=== PATIENT | male | born 1975 | race American Indian/Alaskan Native ===

== ENCOUNTER 2017-06-18 20:51 | Inpatient (IN) | payer MEDICAID ==
[~2017-06-18] VITALS: Ht 190.5 cm; Wt 95.4 kg
[~2017-06-18 20:51] MED LIST: ALPR.5T; DOXY100C2 PO; HYDR-3720; HYDR1TAB86; HYDROCODONE; LISI10TA2; LOTENSIN; NFPRILOC40; PREVACID; SULF1TAB38; TRM50T PO; VERA240T; ultram
[2017-06-18] MEDS ORDERED: NS IV 1000 ML 1,000 ML IV ONE ×2 (21:43→22:56)
[2017-06-18] MEDS ORDERED: PIPERACILLIN SODIUM/TAZOBACTAM 4.5 GM in NS (IVPB) 100 ML IV ONE (21:45)
[2017-06-18] MEDS ORDERED: inSUlin (REGULAR) HUMAN 1 UNIT/0.01 ML (CHARGE PER UNIT) IV ONE (21:45)
[2017-06-18 21:49] LABS: BASOPHILS % (AUTO) 0 % (0-10); EOSINOPHILS % (AUTO) 0 % (0-10); LYMPHOCYTES % (AUTO) 16 % (12-44); MEAN CORPUSCULAR HEMOGLOBIN 29 PG (25-34); MEAN CORPUSCULAR HGB CONC 34 G/DL (32-36); MEAN CORPUSCULAR VOLUME 86 FL (80-99); MEAN PLATELET VOLUME 13.4 FL (7.4-10.4); MONOCYTES # (AUTO) 0.8 X 10^3 (0.0-1.0); MONOCYTES % (AUTO) 13 % (0-12); NEUTROPHILS # (AUTO) 4.4 X 10^3 (1.8-7.8); NEUTROPHILS % (AUTO) 70 % (42-75); PLATELET COUNT 123 10^3/uL (130-400); RED BLOOD COUNT 4.99 10^6/uL (4.35-5.85); RED CELL DISTRIBUTION WIDTH 12.4 % (10.0-14.5); WHITE BLOOD COUNT 6.3 10^3/uL (4.3-11.0)
[2017-06-18 21:54] LABS: BILIRUBIN,URINE NEGATIVE (NEGATIVE); KETONES,URINE 1+ (NEGATIVE); LEUKOCYTE ESTERASE ,URINE NEGATIVE (NEGATIVE); NITRITE,URINE NEGATIVE (NEGATIVE); PH,URINE 5 (5-9); PROTEIN,URINE NEGATIVE (NEGATIVE); UROBILINOGEN,URINE NORMAL (NORMAL)
[2017-06-18 21:54] LABS: PROTHROMBIN TIME PATIENT 13.1 SEC (12.2-14.7)
[2017-06-18 22:10] LABS: WBC,URINE RARE /HPF
[2017-06-18 22:10] LABS: ALANINE AMINOTRANSFERASE 27 U/L (0-55); ALBUMIN 3.6 GM/DL (3.2-4.5); ANION GAP 15 MMOL/L (5-14); ASPARTATE AMINO TRANSFERASE 18 U/L (5-34); BILIRUBIN,TOTAL 0.6 MG/DL (0.1-1.0); BLOOD UREA NITROGEN 12 MG/DL (7-18); BUN/CREATININE RATIO 11; CALCIUM 9.2 MG/DL (8.5-10.1); CARBON DIOXIDE 22 MMOL/L (21-32); CHLORIDE 91 MMOL/L (98-107); CREATININE SERUM 1.07 MG/DL (0.60-1.30); GFR ESTIMATED > 60; SODIUM 128 MMOL/L (135-145); TOTAL PROTEIN 6.4 GM/DL (6.4-8.2)
[2017-06-18 22:12] LABS: GLUCOSE 569 MG/DL (70-105)
[2017-06-18] MEDS ORDERED: ACETAMINOPHEN 500 MG TAB (TYLENOL) PO ONE (23:15)
--- NOTE | 2017-06-18 23:20 | ED General ---
General Chief Complaint: Oral/Throat Problems Stated Complaint: INFECTION ON LIP Nursing Triage Note: patient reports a dental abscess on the L lower jaw. patient reports that this has been there for 2 days. patient also reports that his blood sugar is high and his meter at home read 'error' patient reports he is supposed to take insulin for blood sugar but hasn't 'taken it in years' Nursing Sepsis Screen: No Definite Risk Source of Information: Patient, Old Records Exam Limitations: No Limitations History of Present Illness Time Seen by Provider: 21:37 Initial Comments This 42-year-old man presents to the emergency room complaining of mouth infection, fever, hyperglycemia, and feeling dehydrated. He has type II diabetes for which he takes no medications. He has not seen a physician in more than 2 years. He is noted to have a temperature of 101.1 on assessment. He reports temperature up to 101.6 at home. He has had some mild cough as well as nausea and vomiting. He has urinary frequency and some suprapubic tenderness. He has been ill for the last 2-3 days. Sepsis was suspected on patient's examination at 21:40. Patient admits to occasional alcohol use and marijuana use. Allergies and Home Medications Allergies Coded Allergies: No Known Drug Allergies (Unverified Allergy, Mild, 06/08/09) Constitutional: see HPI EENTM: see HPI Respiratory: see HPI Cardiovascular: other (tachycardia) Gastrointestinal: see HPI Genitourinary: see HPI Musculoskeletal: no symptoms reported Skin: no symptoms reported Psychiatric/Neurological: No Symptoms Reported Hematologic/Lymphatic: No Symptoms Reported Past Gkttinb-Yppmma-Wmbqrz Hx Patient Social History Alcohol Use: Occasionally Uses Recreational Drug Use: Yes (past history of IV drug use) Drug of Choice: THC Smoking Status: Current Everyday Smoker Type Used: Cigarettes Recent Foreign Travel: No Contact w/Someone Who Travel: No Recent Infectious Disease Expo: No Recent Hopitalizations: No Surgeries HX Surgeries: Yes Surgeries: Abdominal Respiratory Hx Respiratory Disorders: Yes Respiratory Disorders: COPD Cardiovascular Hx Cardiac Disorders: Yes Cardiac Disorders: Hypertension Neurological Hx Neurological Disorders: No Reproductive System Hx Reproductive Disorders: No Genitourinary Hx Genitourinary Disorders: No Gastrointestinal Hx Gastrointestinal Disorders: Yes Gastrointestinal Disorders: Gastroesophageal Reflux Musculoskeletal Hx Musculoskeletal Disorders: No Endocrine Hx Endocrine Disorders: Yes Endocrine Disorders: Diabetes, Insulin dep HEENT HX ENT Disorders: Yes Cancer Hx Cancer: No Psychosocial Hx Psychiatric Problems: Yes (history of IV drug use) Blood Transfusions Hx Blood Disorders: No Physical Exam Vital Signs Vital Sign - Last 12Hours 06/18/17 21:04 Temp 101.1 Pulse 118 Resp 18 B/P (MAP) 127/75 Pulse Ox 96 Capillary Refill : Less Than 3 Seconds General Appearance: WD/WN, Other (ill appearing) HEENT: PERRL/EOMI, Normal ENT Inspection, Other (severe dental disease. Diffuse severe thrush) Neck: Normal Inspection Respiratory: No Accessory Muscle Use, No Respiratory Distress, Crackles (left lung base and throughout the right lung) Cardiovascular: No Edema, No Murmur, Normal Peripheral Pulses, Tachycardia Gastrointestinal: Normal Bowel Sounds, Soft, Tenderness (mild in the suprapubic region) Extremity: Normal Inspection, No Pedal Edema Neurologic/Psychiatric: Alert, Oriented x3, No Motor/Sensory Deficits, Normal Mood/Affect, company doctor II-XII Norm as Tested Skin: Normal Color, Warm/Dry Focused Exam Evaluation Sepsis Stage: Sepsis Possible Source: Pulmonary Time of Focused Exam: 23:30 Respiratory: Lungs Clear, Normal Breath Sounds, No Accessory Muscle Use, No Respiratory Distress Cardiovascular: No Edema, No Murmur, Tachycardia Capillary Refill: Less Than 3 Seconds Peripheral Pulses: 3+ Radial Pulses (R), 3+ Radial Pulses (L) Skin: normal color, warm/dry Lactic Acid Level Laboratory Tests Test 06/18/17 21:15 Lactic Acid Level 1.60 MMOL/L (0.50-2.00) Progress/Results/Core Measures Results/Orders Lab Results Laboratory Tests Test 06/18/17 21:08 06/18/17 21:15 06/18/17 21:45 06/18/17 22:30 Range/Units Glucometer 504 *H 70-110 MG/DL White Blood Count 6.3 4.3-11.0 10^3/uL Red Blood Count 4.99 4.35-5.85 10^6/uL Hemoglobin 14.6 13.3-17.7 G/DL Hematocrit 43 40-54 % Mean Corpuscular Volume 86 80-99 FL Mean Corpuscular Hemoglobin 29 25-34 PG Mean Corpuscular Hemoglobin Concent 34 32-36 G/DL Red Cell Distribution Width 12.4 10.0-14.5 % Platelet Count 123 L 130-400 10^3/uL Mean Platelet Volume 13.4 H 7.4-10.4 FL Neutrophils (%) (Auto) 70 42-75 % Lymphocytes (%) (Auto) 16 12-44 % Monocytes (%) (Auto) 13 H 0-12 % Eosinophils (%) (Auto) 0 0-10 % Basophils (%) (Auto) 0 0-10 % Neutrophils # (Auto) 4.4 1.8-7.8 X 10^3 Lymphocytes # (Auto) 1.0 1.0-4.0 X 10^3 Monocytes # (Auto) 0.8 0.0-1.0 X 10^3 Eosinophils # (Auto) 0.0 0.0-0.3 10^3/uL Basophils # (Auto) 0.0 0.0-0.1 10^3/uL Prothrombin Time 13.1 12.2-14.7 SEC INR Comment 1.0 0.8-1.4 Activated Partial Thromboplast Time 28 24-35 SEC Sodium Level 128 L 135-145 MMOL/L Potassium Level 4.0 3.6-5.0 MMOL/L Chloride Level 91 L 98-107 MMOL/L Carbon Dioxide Level 22 21-32 MMOL/L Anion Gap 15 H 5-14 MMOL/L Blood Urea Nitrogen 12 7-18 MG/DL Creatinine 1.07 0.60-1.30 MG/DL Estimat Glomerular Filtration Rate > 60 BUN/Creatinine Ratio 11 Glucose Level 569 *H 70-105 MG/DL Lactic Acid Level 1.60 0.50-2.00 MMOL/L Calcium Level 9.2 8.5-10.1 MG/DL Total Bilirubin 0.6 0.1-1.0 MG/DL Aspartate Amino Transf (AST/SGOT) 18 5-34 U/L Alanine Aminotransferase (ALT/SGPT) 27 0-55 U/L Alkaline Phosphatase 97 40-136 U/L Total Protein 6.4 6.4-8.2 GM/DL Albumin 3.6 3.2-4.5 GM/DL Urine Color YELLOW Urine Clarity CLEAR Urine pH 5 5-9 Urine Specific [place] 1.010 L 1.016-1.022 Urine Protein NEGATIVE NEGATIVE Urine Glucose (UA) 4+ H NEGATIVE Urine Ketones 1+ H NEGATIVE Urine Nitrite NEGATIVE NEGATIVE Urine Bilirubin NEGATIVE NEGATIVE Urine Urobilinogen NORMAL NORMAL MG/DL Urine Leukocyte Esterase NEGATIVE NEGATIVE Urine RBC (Auto) NEGATIVE NEGATIVE Urine RBC RARE /HPF Urine WBC RARE /HPF Urine Crystals NONE /LPF Urine Bacteria NEGATIVE /HPF Urine Casts NONE /LPF Urine Mucus NEGATIVE /LPF Urine Culture Indicated NO Urine Opiates Screen NEGATIVE NEGATIVE Urine Oxycodone Screen NEGATIVE NEGATIVE Urine Methadone Screen NEGATIVE NEGATIVE Urine Propoxyphene Screen NEGATIVE NEGATIVE Urine Barbiturates Screen NEGATIVE NEGATIVE Ur Tricyclic Antidepressants Screen NEGATIVE NEGATIVE Urine Phencyclidine Screen NEGATIVE NEGATIVE Urine Amphetamines Screen POSITIVE H NEGATIVE Urine Methamphetamines Screen POSITIVE H NEGATIVE Urine Benzodiazepines Screen NEGATIVE NEGATIVE Urine Cocaine Screen NEGATIVE NEGATIVE Urine Cannabinoids Screen NEGATIVE NEGATIVE Test 06/18/17 22:34 Range/Units Glucometer 440 *H 70-110 MG/DL My Orders Orders - JOVANNY IBRAHIM MD Chest Pa/Lat (2 View) (06/18/17 21:42) Cbc With Automated Diff (06/18/17 21:42) Comprehensive Metabolic Panel (06/18/17 21:42) Lactic Acid Analyzer (06/18/17 21:42) Blood Culture (06/18/17 21:42) Sputum Culture (06/18/17 21:42) Ua Culture If Indicated (06/18/17 21:42) Protime With Inr (06/18/17 21:42) Partial Thromboplastin Time (06/18/17 21:42) O2 (06/18/17 21:42) Saline Lock/Iv-Start (06/18/17 21:42) Saline Lock/Iv-Start (06/18/17 21:42) Vital Signs Adult Sepsis Patie Q1HR (06/18/17 21:42) Remove Rings In Anticipation O (06/18/17 21:42) Insulin (Regular) Human (Humulin R (Per (06/18/17 21:45) Drug Screen Stat (Urine) (06/18/17 21:43) Ns Iv 1000 Ml (Sodium Chloride 0.9%) (06/18/17 21:43) Piperacillin Sodium/Tazobactam (Zosyn Vi (06/18/17 21:45) Hiv 1&2 Antibody (06/18/17 22:07) Accucheck Stat ONCE (06/18/17 22:08) Accucheck Stat ONCE (06/18/17 22:08) Ns Iv 1000 Ml (Sodium Chloride 0.9%) (06/18/17 22:56) Acetaminophen Tablet (Tylenol Tablet) (06/18/17 23:15) Medications Given in ED Current Medications Medications Dose Ordered Sig/Gabrielle Route Start Time Stop Time Status Last Admin Dose Admin Insulin Human Regular 5 unit ONCE ONCE IV 06/18/17 21:45 06/18/17 21:46 DC 06/18/17 21:53 5 UNIT Piperacillin Sod/ Tazobactam Sod 4.5 gm/Sodium Chloride 100 ml @ 200 mls/hr ONCE ONCE IV 06/18/17 21:45 06/18/17 22:14 DC 06/18/17 22:34 200 MLS/HR Sodium Chloride 1,000 ml @ 0 mls/hr Q0M ONCE IV 06/18/17 21:43 06/18/17 21:45 DC 06/18/17 21:53 0 MLS/HR Sodium Chloride 1,000 ml @ 0 mls/hr Q0M ONCE IV 06/18/17 22:56 06/18/17 22:57 DC 06/18/17 23:05 0 MLS/HR Vital Signs/I&O Vital Sign - Last 12Hours 06/18/17 21:04 Temp 101.1 Pulse 118 Resp 18 B/P (MAP) 127/75 Pulse Ox 96 Blood Pressure Mean: 92 Point of Care Testing Finger Stick Blood Glucose: 440 Blood Glucose Action Taken: RN AND DR NOTIFIED Progress Note : Progress Note As soon as sepsis was suspected, the septic protocol was followed. Zosyn was ordered for initial therapy. Patient received a total of 2 L of IV fluids during his ER stay and 5 units of insulin. Blood sugar was trending down at the time of admission. Case was reviewed with Dr. Kang who agrees with admission to the ICU on an insulin drip with pneumonia protocol as well. Diagnostic Imaging Diagonstic Imaging: Xray Plain Films/CT/US/NM/MRI: chest Comments Two-view chest x-ray viewed by me. Report not yet available. There are subtle infiltrates in the right perihilar region and left lower lung suspicious of pneumonia. This correlates well with bilateral crackles on exam. Departure Communication Time/Spoke to Admitting Phy: 22:[address] Kang Impression Impression: Primary Impression: Sepsis Qualified Codes: A41.9 - Sepsis, unspecified organism Additional Impressions: Pneumonia Qualified Codes: J18.9 - Pneumonia, unspecified organism Hyperglycemia Diabetes type 2, uncontrolled Qualified Codes: E11.8 - Type 2 diabetes mellitus with unspecified complications; E11.65 - Type 2 diabetes mellitus with hyperglycemia Thrush Methamphetamine use Hypovolemia Disposition: ADMITTED INPATIENT Condition: Improved Decision to Admit Reason: Admit from ER (General) Decision to Admit/Date: Jun 18, 2017 Time/Decision to Admit Time: 21:40 Departure-Patient Inst. Referrals: NO,LOCAL PHYSICIAN (PCP/Family) Primary Care Physician JOVANNY IBRAHIM MD Jun 18, 2017 23:20
[2017-06-19] VITALS (27 sets, daily range): BP systolic 100–141; BP diastolic 52–93
[2017-06-19] MEDS ORDERED: inSUlin (REGULAR) HUMAN 1 UNIT/0.01 ML (CHARGE PER UNIT) IV PRN (00:30)
[2017-06-19] MEDS ORDERED: CATHETER FLUSH 10 ML SYR IV PRN (00:30)
[2017-06-19] MEDS ORDERED: FLUCONAZOLE 200 MG/NACL 100 ML (PRE-MIX) IV ONE (00:30)
[2017-06-19] MEDS ORDERED: ONDANSETRON 4 MG/2 ML (SDV) Z0FRAN IV PRN (00:30)
[2017-06-19] MEDS ORDERED: INSULIN DRIP 250 UNITS/NS 250 ML IV SCH ×2 (00:30)
[2017-06-19] MEDS ORDERED: DEXTROSE 50% 50 ML (IMS) SYR IV PRN (00:30)
[2017-06-19] MEDS: NS IV 1000 ML 1,000 ML IV SCH ×6 (00:49→15:55)
[2017-06-19] MEDS ORDERED: NORMAL SALINE 250 ML ONE (00:51)
[2017-06-19] MEDS: LEVOFLOXACIN 750 MG/D5W 150 ML PRE-MIX IV SCH (01:44)
[2017-06-19] MEDS: CEFEPIME 2 GM/NS 50 ML IVPB IV SCH ×4 (02:44→14:06)
[2017-06-19] MEDS ORDERED: RT-ALBUTEROL/IPRATROPIUM 3 ML (DUONEB) VIAL INH PRN (03:45)
[2017-06-19 03:54] LABS: BASOPHILS % (AUTO) 0 % (0-10); EOSINOPHILS % (AUTO) 0 % (0-10); LYMPHOCYTES # (AUTO) 1.1 X 10^3 (1.0-4.0); LYMPHOCYTES % (AUTO) 23 % (12-44); MEAN CORPUSCULAR HEMOGLOBIN 30 PG (25-34); MEAN CORPUSCULAR HGB CONC 34 G/DL (32-36); MEAN CORPUSCULAR VOLUME 87 FL (80-99); MEAN PLATELET VOLUME 12.9 FL (7.4-10.4); MONOCYTES # (AUTO) 0.6 X 10^3 (0.0-1.0); MONOCYTES % (AUTO) 12 % (0-12); NEUTROPHILS # (AUTO) 3.1 X 10^3 (1.8-7.8); NEUTROPHILS % (AUTO) 64 % (42-75); PLATELET COUNT 108 10^3/uL (130-400); RED BLOOD COUNT 4.27 10^6/uL (4.35-5.85); RED CELL DISTRIBUTION WIDTH 12.2 % (10.0-14.5); WHITE BLOOD COUNT 4.8 10^3/uL (4.3-11.0)
[2017-06-19 04:15] LABS: ALANINE AMINOTRANSFERASE 22 U/L (0-55); ANION GAP 10 MMOL/L (5-14); ASPARTATE AMINO TRANSFERASE 21 U/L (5-34); BILIRUBIN,TOTAL 0.4 MG/DL (0.1-1.0); BLOOD UREA NITROGEN 12 MG/DL (7-18); BUN/CREATININE RATIO 16; CALCIUM 7.9 MG/DL (8.5-10.1); CARBON DIOXIDE 22 MMOL/L (21-32); CHLORIDE 101 MMOL/L (98-107); CREATININE SERUM 0.73 MG/DL (0.60-1.30); GFR ESTIMATED > 60; GLUCOSE 265 MG/DL (70-105); MAGNESIUM 1.6 MG/DL (1.8-2.4); PHOSPHORUS 2.6 MG/DL (2.3-4.7); POTASSIUM 3.1 MMOL/L (3.6-5.0); SODIUM 133 MMOL/L (135-145)
[2017-06-19] MEDS: CATHETER FLUSH 10 ML SYR IV SCH ×3 (04:32→21:35)
[2017-06-19] MEDS: MAGNESIUM 1 GM/100 ML IVPB 100 ML IV SCH ×2 (04:39→05:29)
[2017-06-19] MEDS: POTASSIUM CL 10MEQ/50ML IVPB 50 ML IV SCH ×4 (04:39→07:26)
[2017-06-19] MEDS ORDERED: KCL 20 MEQ TAB (K-DUR) PO SCH (06:00)
[2017-06-19] MEDS ORDERED: POTASSIUM CL 10MEQ/50ML IVPB 50 ML IV SCH (06:00)
[2017-06-19] MEDS ORDERED: MAGNESIUM 1 GM/100 ML IVPB 100 ML IV SCH (06:00)
[2017-06-19] MEDS: RT-ALBUTEROL/IPRATROPIUM 3 ML (DUONEB) VIAL INH SCH ×2 (07:36→19:09)
--- NOTE | 2017-06-19 08:00 | Diagnostic Imaging Report ---
INDICATION: Fever. COMPARISON: 01/12/2010. Frontal and lateral views of the chest demonstrate clear lungs bilaterally. Heart is normal. No pneumothorax. Osseous structures normal. IMPRESSION: Negative chest. Dictated by: Dictated on workstation # [id number]
[2017-06-19] MEDS: ACETAMINOPHEN 500 MG TAB (TYLENOL) PO PRN ×2 (09:18→15:59)
[2017-06-19] MEDS: fluCOnazole (DIFLUCAN) 100 MG TAB PO SCH (09:18)
--- NOTE | 2017-06-19 09:49 | Diagnostic Imaging Report ---
INDICATION: Cough. COMPARISON: 06/18/2017. FINDINGS: Progression of left lower lobe heterogeneous consolidations. No pneumothorax. No pleural effusion. Normal cardiomediastinal silhouette. IMPRESSION: 1. Progression of left lower lobe heterogeneous consolidations which is likely due to pneumonia per patient history. Dictated by: Dictated on workstation # [id number]
--- NOTE | 2017-06-19 11:07 | History & Physical-Hospitalist ---
HPI History of Present Illness: HPI/Chief Complaint CC: Cough and fever HPI: This is a 42yoWM known DM but non-compliant with medical treatment who also uses meth that presents to the ER w/cough and fever. He was dx with pneumonia, sepsis and sugar of 500 so he was placed in ICU overnight and received IVF, insulin drip and antibiotics. Pt has a very poor prognosis considering meth use and his obvious lack of interest in listening to the medical plan. He also has thrush and can't eat so we have placed him on Diflucan and I started Nystatin and HIV test is pending. Source: patient Exam Limitations: other (refuses to be forthcoming with any details most of interview) Date Seen 06/19/17 Time Seen by Provider: 10:30 Attending Physician Lillie Kang DO PCP No,Local Physician Referring Physician Date of Admission Jun 18, 2017 at 23:12 Home Medications & Allergies Home Medications Reviewed patient Home Medication Reconciliation Form Allergies Allergies Coded Allergies No Known Drug Allergies (Unverified06/08/09) Past Klxlfrn-Eylyvz-Oibopg Hx Patient Social History Marrital Status: cohabiting Employed/Student: unemployed Alcohol Use: Occasionally Uses Recreational Drug Use: Yes (past history of IV drug use) Drug of Choice: THC Smoking Status: Current Everyday Smoker Type Used: Cigarettes Physical Abuse Screen: No Sexual Abuse: No Recent Foreign Travel: No Contact w/other who traveled: No Recent Hopitalizations: No Recent Infectious Disease Expo: No Seasonal Allergies Seasonal Allergies: No Surgeries HX Surgeries: Yes Surgeries: Abdominal Respiratory Hx Respiratory Disorders: Yes Respiratory Disorders: Asthma Cardiovascular Hx Cardiovascular Disorders: Yes Cardiac Disorders: Hypertension Neurological Hx Neurological Disorders: No Reproductive System Hx Reproductive Disorders: No Genitourinary Hx Genitourinary Disorders: No Gastrointestinal Hx Gastrointestinal Disorders: Yes Gastrointestinal Disorders: Gastroesophageal Reflux Musculoskeletal Hx Musculoskeletal Disorders: No Endocrine Hx Endocrine Disorders: Yes Endocrine Disorders: Diabetes, Insulin dep HEENT HX ENT Disorders: Yes Cancer Hx Cancer: No Psychosocial Hx Psychiatric Problems: Yes (history of IV drug use) Blood Transfusions Hx Blood Disorders: No Family Medical History Family Hx: Patient reports no known family medical history. Review of Systems Constitutional: chills, dizziness, fever, malaise, weakness EENTM: no symptoms reported Respiratory: dyspnea on exertion, short of breath, wheezing Cardiovascular: no symptoms reported Gastrointestinal: no symptoms reported Genitourinary: no symptoms reported Musculoskeletal: no symptoms reported Skin: no symptoms reported Psychiatric/Neurological: No Symptoms Reported All Other Systems Reviewed Negative Unless Noted: Yes Physical Exam Physical Exam Vital Signs Vital Sign - Last 12Hours 06/18/17 06/19/17 06/19/17 21:04 00:05 03:15 Temp 101.1 Pulse 118 Resp 18 B/P (MAP) 127/75 Pulse Ox 96 O2 Delivery Room Air FiO2 21 Capillary Refill : Less Than 3 Seconds General Appearance: No Apparent Distress, WD/WN, Chronically ill, Obese Eyes: Bilateral Eye Normal Inspection, Bilateral Eye PERRL HEENT: PERRL/EOMI, Normal ENT Inspection, Pharynx Normal, Other (thrush on tongue) Neck: Full Range of Motion, Normal Inspection, Non Tender, Supple, Carotid Bruit Respiratory: Chest Non Tender, Lungs Clear, Normal Breath Sounds, No Accessory Muscle Use, No Respiratory Distress Cardiovascular: Regular Rate, Rhythm, No Edema, No Gallop, No JVD, No Murmur, Normal Peripheral Pulses Gastrointestinal: Normal Bowel Sounds, No Organomegaly, No Pulsatile Mass, Non Tender, Soft Back: Normal Inspection, No CVA Tenderness, No Vertebral Tenderness Extremity: Normal Capillary Refill, Normal Inspection, Normal Range of Motion, Non Tender, No Calf Tenderness, No Pedal Edema Neurologic/Psychiatric: Alert, Oriented x3, No Motor/Sensory Deficits, Normal Mood/Affect Skin: Normal Color, Warm/Dry Lymphatic: No Adenopathy Results Results/Procedures Lab Laboratory Tests 06/18/17 21:15 06/19/17 03:10 Assessment/Plan Admission Diagnosis Assessment: Sepsis due to pneumonia LLL Meth use Thrush so HIV results pending Poor dental hygiene DM OOC due to non-compliance with medical treatment HGA1C 14 Assessment and Plan Plan: Transfer to floor OHA SSI Novolog DM education Nystatin S&S with Diflucan Abx Decrease IVF Clinical Quality Measures DVT/VTE Risk/Contraindication: Risk Factor Score Per Nursin RFS Level Per Nursing on Admit: 1=Low/No VTE PPX LILLIE KANG DO Jun 19, 2017 11:07
[2017-06-19] MEDS: NYSTATIN ORAL SUSP 5 ML UDC PO SCH ×2 (14:06→17:11)
[2017-06-19] MEDS: ENOXAPARIN 40 MG/0.4 ML (LOVENOX) SYR SC SCH (14:07)
[2017-06-19] MEDS: inSUlin ASPART (NovoLOG) 1 UNIT/0.01 ML (CHARGE PER UNIT) SC SCH ×2 (17:11→21:36)
[2017-06-19] MEDS ORDERED: morphine INJ 4 MG/ML 1 ML (VIAL/SYRINGE) IVP PRN (21:00)
[2017-06-19] MEDS ORDERED: IBUPROFEN TABLET 200 MG TAB PO PRN (21:00)
[2017-06-19] MEDS: glyBURIDE 2.5 MG (MICRONASE) TAB PO SCH (21:31)
[2017-06-20] MEDS: LEVOFLOXACIN 750 MG/D5W 150 ML PRE-MIX IV SCH (00:38)
[2017-06-20] MEDS: NYSTATIN ORAL SUSP 5 ML UDC PO SCH ×3 (00:38→12:24)
[2017-06-20] MEDS: CEFEPIME 2 GM/NS 50 ML IVPB IV SCH ×4 (00:38→12:36)
[2017-06-20 03:15] VITALS: BP 133/81
[2017-06-20] MEDS: NS IV 1000 ML 1,000 ML IV SCH (04:27)
[2017-06-20 04:52] LABS: BASOPHILS % (AUTO) 1 % (0-10); EOSINOPHILS % (AUTO) 1 % (0-10); LYMPHOCYTES # (AUTO) 0.8 X 10^3 (1.0-4.0); LYMPHOCYTES % (AUTO) 21 % (12-44); MEAN CORPUSCULAR HEMOGLOBIN 30 PG (25-34); MEAN CORPUSCULAR HGB CONC 34 G/DL (32-36); MEAN CORPUSCULAR VOLUME 88 FL (80-99); MEAN PLATELET VOLUME 12.6 FL (7.4-10.4); MONOCYTES # (AUTO) 0.4 X 10^3 (0.0-1.0); MONOCYTES % (AUTO) 11 % (0-12); NEUTROPHILS # (AUTO) 2.6 X 10^3 (1.8-7.8); NEUTROPHILS % (AUTO) 67 % (42-75); PLATELET COUNT 105 10^3/uL (130-400); RED BLOOD COUNT 4.17 10^6/uL (4.35-5.85); RED CELL DISTRIBUTION WIDTH 12.1 % (10.0-14.5); WHITE BLOOD COUNT 3.9 10^3/uL (4.3-11.0)
[2017-06-20 05:23] LABS: ALANINE AMINOTRANSFERASE 26 U/L (0-55); ALBUMIN 2.8 GM/DL (3.2-4.5); ANION GAP 9 MMOL/L (5-14); ASPARTATE AMINO TRANSFERASE 24 U/L (5-34); BILIRUBIN,TOTAL 0.3 MG/DL (0.1-1.0); BLOOD UREA NITROGEN 9 MG/DL (7-18); BUN/CREATININE RATIO 12; CALCIUM 7.9 MG/DL (8.5-10.1); CARBON DIOXIDE 21 MMOL/L (21-32); CHLORIDE 101 MMOL/L (98-107); CREATININE SERUM 0.76 MG/DL (0.60-1.30); GFR ESTIMATED > 60; GLUCOSE 329 MG/DL (70-105); POTASSIUM 3.8 MMOL/L (3.6-5.0); SODIUM 131 MMOL/L (135-145); TOTAL PROTEIN 5.3 GM/DL (6.4-8.2)
[2017-06-20] MEDS: CATHETER FLUSH 10 ML SYR IV SCH (06:02)
[2017-06-20] MEDS: inSUlin ASPART (NovoLOG) 1 UNIT/0.01 ML (CHARGE PER UNIT) SC SCH ×2 (06:02→11:14)
[2017-06-20 07:47] VITALS: BP 114/63
--- NOTE | 2017-06-20 08:46 | Pulmonary Consultation ---
History of Present Illness History of Present Illness Date of Consultation 06/20/17 08:41 Time Seen by Provider: 08:41 Date of Admission History of Present Illness 42YO WITH HX of noncompliant DM and uses methamphetamines presented to ED secondary to coughing and fever. He was dx with pneumonia and admitted to ICU x 1 night then transferred to 4th floor. Pt also has severe thrush he is currently on Diflucan and HIV testing is pending. I am consulted for pulmonary management. Allergies and Home Medications Allergies Coded Allergies: No Known Drug Allergies (Unverified , 06/08/09) Home Medications No Active Prescriptions or Reported Meds Past Epxthfq-Xuapkx-Kgdhab Hx Patient Social History Alcohol Use: Occasionally Uses Recreational Drug Use: Yes (past history of IV drug use) Drug of Choice: THC Smoking Status: Current Everyday Smoker Type Used: Cigarettes Recent Foreign Travel: No Contact w/Someone Who Travel: No Recent Infectious Disease Expo: No Recent Hopitalizations: No Physical Abuse Screen: No Sexual Abuse: No Seasonal Allergies Seasonal Allergies: No Surgeries HX Surgeries: Yes Surgeries: Abdominal Respiratory Hx Respiratory Disorders: Yes Respiratory Disorders: COPD Cardiovascular Hx Cardiac Disorders: Yes Cardiac Disorders: Hypertension Neurological Hx Neurological Disorders: No Reproductive System Hx Reproductive Disorders: No Genitourinary Hx Genitourinary Disorders: No Gastrointestinal Hx Gastrointestinal Disorders: Yes Gastrointestinal Disorders: Gastroesophageal Reflux Musculoskeletal Hx Musculoskeletal Disorders: No Endocrine Hx Endocrine Disorders: Yes Endocrine Disorders: Diabetes, Insulin dep HEENT HX ENT Disorders: Yes Cancer Hx Cancer: No Psychosocial Hx Psychiatric Problems: Yes (history of IV drug use) Blood Transfusions Hx Blood Disorders: No Family Medical History Family Medial History: Patient reports no known family medical history. Review of Systems Time Seen by Provider: 08:53 Constitutional: Fever Exam Exam Vital Signs Date Time Temp Pulse Resp B/P (MAP) Pulse Ox O2 Delivery O2 Flow Rate FiO2 06/20/17 07:47 98.0 87 20 114/63 99 Room Air 06/20/17 03:15 98.8 99 18 133/81 98 Room Air 06/19/17 23:25 99.3 100 20 125/76 96 Room Air 06/19/17 21:00 Room Air 06/19/17 19:47 98.9 85 18 141/93 100 Room Air 06/19/17 19:09 95 Room Air 06/19/17 17:11 100.1 06/19/17 16:59 100.1 100 18 138/89 97 Room Air 06/19/17 15:59 101.9 06/19/17 13:00 90 18 132/85 98 Room Air 06/19/17 12:40 Room Air 06/19/17 12:00 102 17 100/52 97 Room Air 06/19/17 11:00 88 16 124/81 100 Room Air 06/19/17 10:00 98 19 130/83 98 Room Air 06/19/17 09:18 101.3 06/19/17 09:00 109 10 121/82 98 Room Air I & O 06/20/17 07:00 Intake Total 3880 ml Output Total 2025 ml Balance 1855 ml General Appearance: No Apparent Distress, WD/WN, Chronically ill, Obese HEENT: PERRL/EOMI, Normal ENT Inspection, Pharynx Normal, Other (thrush on tongue) Neck: Full Range of Motion, Normal Inspection, Non Tender, Supple, Carotid Bruit Respiratory: Chest Non Tender, Lungs Clear, Normal Breath Sounds, No Accessory Muscle Use, No Respiratory Distress Cardiovascular: Regular Rate, Rhythm, No Edema, No Gallop, No JVD, No Murmur, Normal Peripheral Pulses Capillary Refill: Less Than 3 Seconds Peripheral Pulses: 3+ Radial Pulses (R), 3+ Radial Pulses (L) Extremity: Normal Capillary Refill, Normal Inspection, Normal Range of Motion, Non Tender, No Calf Tenderness, No Pedal Edema Neurologic/Psychiatric: Alert, Oriented x3, No Motor/Sensory Deficits, Normal Mood/Affect Skin: Normal Color, Warm/Dry Lymphatic: No Adenopathy Results Lab Laboratory Tests 06/18/17 21:15 06/19/17 03:10 06/20/17 04:15 Assessment/Plan Assessment/Plan Sepsis secondary to pneumonia LLL -Continue abx therapy with Levaquin PO x 7 days then D/C -await calero cultures Methamphetamine use Thrush -HIV pending From pulmonary standpoint pt is ok for discharge on Levaquin. F/U with his PCP for f/u CXR. Clinical Quality Measures DVT/VTE Risk/Contraindication: Risk Factor Score Per Nursin RFS Level Per Nursing on Admit: 1=Low/No VTE PPX MIGUELINA MACDONALD DO Jun 20, 2017 08:46
[2017-06-20] MEDS: glyBURIDE 2.5 MG (MICRONASE) TAB PO SCH (09:27)
[2017-06-20] MEDS: fluCOnazole (DIFLUCAN) 100 MG TAB PO SCH (09:27)
[2017-06-20] MEDS: RT-ALBUTEROL/IPRATROPIUM 3 ML (DUONEB) VIAL INH SCH (09:43)
--- NOTE | 2017-06-20 11:07 | Progress Note-Hospitalist ---
Standard Progress Note Progress Notes/Assess & Plan Date Seen 06/20/17 Time Seen by Provider: 11:00 Diagnosis Assessment: Sepsis due to pneumonia LLL Meth use Thrush so HIV results pending Poor dental hygiene DM OOC due to non-compliance with medical treatment HGA1C 14 Assess & Plan/Chief Complaint The patient and his significant other are cuddling in the bed on my arrival at the room. He voices no specific complaints. He is afebrile. His cough is diminished. His white count has also decreased and was never out of the normal range. Laboratory was positive for meth and amphetamines. He has not been taking any hypoglycemics. Chest x-ray continues to show evidence of a left lower lobe infiltrate. Physical exam: Tongue is covered with an abundant exudative process. Neck reveals no palpable nodes. Lungs are clear to auscultation. CV is regular without murmur. Impression: Left lower lobe infiltrate/pneumonia 2.abundant evidence of thrush. 3.uncontrolled diabetes mellitus. 4.strong suspicion of HIV. Plan: Dismiss with oral antibiotics for 1 week. 2.treatment of thrush. 3.start oral hypoglycemics. 4.appointment with [facility]. Note: HIV results are not present at this time. Labs Laboratory Tests 06/18/17 21:15 06/19/17 03:10 06/20/17 04:15 Final Diagnosis 1.left lower lobe pneumonia. 2.oral thrush. 3.diabetes mellitus type II untreated. 4.active history of drug abuse. 5.suspicion of HIV pending serology. RODERICK WATTS MD Jun 20, 2017 11:07
[2017-06-20] MEDS ORDERED: FLUC100T6 PO (11:13)
[2017-06-20] MEDS ORDERED: NYST1000 PO (11:13)
[2017-06-20] MEDS ORDERED: LEVO750T9 PO (11:13)
[2017-06-20] MEDS ORDERED: GLYB2.5T4 PO (11:13)
[2017-06-20] MEDS: ENOXAPARIN 40 MG/0.4 ML (LOVENOX) SYR SC SCH (11:27)
[2017-06-20 13:10] VITALS: BP 114/63
== END 2017-06-20 13:28 | disposition home or self-care (01) | DRG 871 ==
LOC: EDUNIT# 20:51 → ER 20:53 → ICU 23:12 → 4TH 06-19 20:36
PROVIDERS: ADMIT Internal Medicine; ATTEND Internal Medicine
DX: A41.9 Sepsis, unspecified organism (principal); J18.9 Pneumonia, unspecified organism; B37.0 Candidal stomatitis; E11.65 Type 2 diabetes mellitus with hyperglycemia; I10 Essential (primary) hypertension; J45.909 Unspecified asthma, uncomplicated; K21.9 Gastro-esophageal reflux disease without esophagitis; F15.90 Other stimulant use, unspecified, uncomplicated; F17.210 Nicotine dependence, cigarettes, uncomplicated; Z91.19 Patient's noncompliance with other medical treatment and regimen
CPT/HCPCS: 36415; 71020; 80053; 80306; 81000; 82962; 83036; 83605; 83735; 84100; 85025; 85610; 85730; 86703; 87040; 94640; 94664; 94760; 96361; 96365; 96375

== ENCOUNTER → 2022-03-18 | Outpatient (CLI) | payer OTHER ==
[~2022-03-18] MED LIST changes: +FLUC100T10 PO; +GLBR2.5T PO; +LEVO750T9 PO; +NYST1000 PO
--- NOTE | 2022-03-18 13:28 | Diagnostic Imaging Report ---
INDICATION: ANGUS FOOT PAIN COMPARISON: None. FINDINGS: Multiple radiographic views of the bilateral feet demonstrate no acute fracture or dislocation. There are no focal osseous lesions. There is no soft tissue swelling. Joint spaces are well maintained. No radiopaque foreign bodies are seen. IMPRESSION: Unremarkable radiographic exam of the bilateral feet. Dictated by: Dictated on workstation # [id number]
== END ==
LOC: RAD 10:09
PROVIDERS: ATTEND Family Medicine
DX: Z02.71 Encounter for disability determination (principal); M79.672 Pain in left foot; M79.671 Pain in right foot

== ENCOUNTER 2023-03-23 23:49 | Inpatient (IN) | payer MEDICAID ==
[~2023-03-23] VITALS: Ht 182 cm; Wt 88.9 kg
[2023-03-24 00:09] LABS: BASOPHILS # (AUTO) 0.1 10^3/uL (0.0-0.1); BASOPHILS % (AUTO) 0 % (0-10); EOSINOPHILS % (AUTO) 0 % (0-10); HEMATOCRIT 55 % (40-54); HEMOGLOBIN 18.3 g/dL (13.3-17.7); LYMPHOCYTES # (AUTO) 1.8 10^3/uL (1.0-4.0); LYMPHOCYTES % (AUTO) 11 % (12-44); MEAN CORPUSCULAR HEMOGLOBIN 29 pg (25-34); MEAN CORPUSCULAR HGB CONC 34 g/dL (32-36); MEAN CORPUSCULAR VOLUME 87 fL (80-99); MEAN PLATELET VOLUME 12.4 fL (9.0-12.2); MONOCYTES # (AUTO) 0.8 10^3/uL (0.0-1.0); MONOCYTES % (AUTO) 5 % (0-12); NEUTROPHILS # (AUTO) 13.3 10^3/uL (1.8-7.8); NEUTROPHILS % (AUTO) 83 % (42-75); PLATELET COUNT 237 10^3/uL (130-400)
[2023-03-24] MEDS ORDERED: ONDANSETRON 4 MG/2 ML (SDV) Z0FRAN IVP ONE (00:15)
[2023-03-24] MEDS ORDERED: NS IV 1000 ML 1,000 ML IV SCH ×3 (00:15→02:45)
[2023-03-24 00:21] LABS: ALBUMIN 4.7 GM/DL (3.2-4.5); CHLORIDE 98 MMOL/L (98-107); POTASSIUM 4.4 MMOL/L (3.6-5.0); SODIUM 137 MMOL/L (135-145)
[2023-03-24 00:22] LABS: AMYLASE 29 U/L (25-125); CALCIUM 10.7 MG/DL (8.5-10.1); PROTHROMBIN TIME PATIENT 13.1 SEC (12.2-14.7)
[2023-03-24 00:24] LABS: CARBON DIOXIDE 22 MMOL/L (21-32); TOTAL PROTEIN 8.9 GM/DL (6.4-8.2)
[2023-03-24 00:25] LABS: BILIRUBIN,TOTAL 1.4 MG/DL (0.1-1.0)
[2023-03-24 00:27] LABS: ALKALINE PHOSPHATASE 117 U/L (40-136); CREATININE SERUM 1.36 MG/DL (0.60-1.30); GFR ESTIMATED 65
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
[2023-03-24 00:28] LABS: BUN/CREATININE RATIO 17
[2023-03-24 00:29] LABS: BAND NEUTROPHILS 0 %; BASOPHILS % (MANUAL) 0 %; EOSINOPHILS % (MANUAL) 0 %; ERYTHROCYTE SEDIMENTATION RATE 2 MM/HR (0-15); LYMPHOCYTES % (MANUAL) 10 %; MONOCYTES % (MANUAL) 4 %; NEUTROPHILS % (MANUAL) 82 %; RBC MORPH NORMAL; REACTIVE LYMPHOCYTES 4 %
[2023-03-24 00:30] LABS: ALANINE AMINOTRANSFERASE 17 U/L (0-55); MAGNESIUM 1.9 MG/DL (1.6-2.4)
[2023-03-24] MEDS ORDERED: LIDOCAINE UROJET 2% GEL 10 ML PKG TOP ONE (00:30)
[2023-03-24 00:31] LABS: LIPASE 8 U/L (8-78)
[2023-03-24 00:37] LABS: GLUCOSE 454 MG/DL (70-105)
[2023-03-24] MEDS ORDERED: inSUlin (REGULAR) HUMAN 1 UNIT/0.01 ML (CHARGE PER UNIT) IV ONE (00:45)
[2023-03-24] MEDS ORDERED: D5 1/2 NS 1000 ML IV SOLUTION 1,000 ML IV ONE (02:06)
[2023-03-24] MEDS ORDERED: POTASSIUM CL 10MEQ/50ML IVPB 50 ML IV ONE (02:06)
[2023-03-24] MEDS ORDERED: 1/2 NS IV SOLUTION 1,000 ML IV ONE (02:06)
[2023-03-24] MEDS ORDERED: ONDANSETRON 4 MG/2 ML (SDV) Z0FRAN IV PRN ×2 (02:30→02:45)
[2023-03-24 02:39] LABS: HEMATOCRIT 48 % (40-54); HEMOGLOBIN 16.4 g/dL (13.3-17.7); MEAN CORPUSCULAR HEMOGLOBIN 30 pg (25-34); MEAN CORPUSCULAR HGB CONC 34 g/dL (32-36); MEAN CORPUSCULAR VOLUME 87 fL (80-99); MEAN PLATELET VOLUME 12.5 fL (9.0-12.2); PLATELET COUNT 201 10^3/uL (130-400); WHITE BLOOD COUNT 10.9 10^3/uL (4.3-11.0)
[2023-03-24] MEDS ORDERED: LORazepam INJ 2 MG/ML (ATIVAN) VIAL IV PRN (02:45)
[2023-03-24] MEDS ORDERED: METOCLOPRAMIDE INJ 10 MG/2 ML (REGLAN) IVP PRN (02:45)
[2023-03-24] MEDS ORDERED: ANTACID SUSP 30 ML UDC (MYLANTA) PO PRN (02:45)
[2023-03-24] MEDS ORDERED: SENNA W/DOCUSATE (SENOKOT S) TABLET PO PRN (02:45)
[2023-03-24] MEDS ORDERED: fentaNYL INJ 100 MCG/2 ML AMP IV PRN (02:45)
[2023-03-24] MEDS ORDERED: 1/2 NS IV SOLUTION 1,000 ML IV PRN (02:45)
[2023-03-24] MEDS ORDERED: LORazepam INJ 2 MG/ML (ATIVAN) VIAL IM/IV PRN (02:45)
[2023-03-24] MEDS ORDERED: LORazepam 1 MG (ATIVAN) TAB PO PRN (02:45)
[2023-03-24] MEDS ORDERED: ONDANSETRON 4 MG (ZOFRAN) ORAL DISSOLVE TAB SL PRN (02:45)
[2023-03-24] MEDS ORDERED: ACETAMINOPHEN 650 MG SUPP (TYLENOL) PR PRN (02:45)
[2023-03-24] MEDS ORDERED: ACETAMINOPHEN 500 MG TAB (TYLENOL) PO PRN (02:45)
[2023-03-24 02:54] LABS: CHLORIDE 104 MMOL/L (98-107); POTASSIUM 4.2 MMOL/L (3.6-5.0); SODIUM 141 MMOL/L (135-145)
[2023-03-24] MEDS: 1/2 NS IV SOLUTION 1,000 ML IV SCH ×2 (02:54→06:04)
[2023-03-24 02:55] LABS: CALCIUM 9.6 MG/DL (8.5-10.1)
[2023-03-24] MEDS: POTASSIUM CL 10MEQ/50ML IVPB 50 ML IV SCH ×4 (02:55→09:14)
[2023-03-24 02:56] LABS: GLUCOSE 313 MG/DL (70-105)
[2023-03-24 02:57] LABS: CARBON DIOXIDE 22 MMOL/L (21-32); PROTHROMBIN TIME PATIENT 13.4 SEC (12.2-14.7)
[2023-03-24 02:58] LABS: BILIRUBIN,TOTAL 1.2 MG/DL (0.1-1.0)
[2023-03-24 03:00] LABS: ALKALINE PHOSPHATASE 95 U/L (40-136); CREATININE SERUM 1.22 MG/DL (0.60-1.30); GFR ESTIMATED 74
[2023-03-24 03:01] LABS: BUN/CREATININE RATIO 19
[2023-03-24 03:03] LABS: ALANINE AMINOTRANSFERASE 16 U/L (0-55)
--- NOTE | 2023-03-24 03:32 | Tele-ICU Progress Note ---
Progress Note 48M with DM, HTN, polysubstance abuse admitted with DKA. Patient has not seen an MD in years, but obtains insulin from his son. He has not had any in 3 days. Presented today with lethargy, nausea and frequent vomiting. A/P: - DKA: insulin gtt initiated. Initial glucose 454, gap 17, b-hydroxy 0.95. Repeat with gap improved to 15, glucose 313. Continue volume resuscitation, insulin gtt, serial BMP. A1C pending. Transition to KS when acidosis resolves. - polysub abuse: states he last used meth and EtOH a couple days ago. Unable to be more specific. Refused cath, still awaiting urine sample. Banana bag, CIWA ordered. Patient assessed via real time audiovisual communication system. CCT 10 min Focused Exam Lactate Level 03/24/23 00:00: Lactic Acid Level 1.98 Height, Weight, BMI Height: 6'3.00" Weight: 210lbs. 4.0oz. [id number]; 26.83 BMI Method:Stated Lactic Acid Level Laboratory Tests Test 03/24/23 00:00 Lactic Acid Level 1.98 MMOL/L (0.50-2.00) JESSICA THOMPSON MD March 24, 2023 03:32
[2023-03-24] MEDS ORDERED: NS IV 500 ML 500 ML IV PRN (04:00)
[2023-03-24 04:26] LABS: BASOPHILS % (AUTO) 0 % (0-10); EOSINOPHILS % (AUTO) 0 % (0-10); HEMATOCRIT 46 % (40-54); HEMOGLOBIN 15.4 g/dL (13.3-17.7); LYMPHOCYTES # (AUTO) 1.1 10^3/uL (1.0-4.0); LYMPHOCYTES % (AUTO) 11 % (12-44); MEAN CORPUSCULAR HEMOGLOBIN 29 pg (25-34); MEAN CORPUSCULAR HGB CONC 34 g/dL (32-36); MEAN CORPUSCULAR VOLUME 87 fL (80-99); MONOCYTES # (AUTO) 0.6 10^3/uL (0.0-1.0); MONOCYTES % (AUTO) 5 % (0-12); NEUTROPHILS # (AUTO) 8.8 10^3/uL (1.8-7.8); NEUTROPHILS % (AUTO) 83 % (42-75); PLATELET COUNT 199 10^3/uL (130-400); WHITE BLOOD COUNT 10.6 10^3/uL (4.3-11.0)
[2023-03-24 04:47] LABS: CALCIUM 8.8 MG/DL (8.5-10.1)
[2023-03-24 04:51] LABS: CREATININE SERUM 0.98 MG/DL (0.60-1.30); PHOSPHORUS 3.3 MG/DL (2.3-4.7)
[2023-03-24 04:54] LABS: MAGNESIUM 1.8 MG/DL (1.6-2.4)
[2023-03-24] MEDS: MAGNESIUM 1 GM/100 ML IVPB 100 ML IV SCH (05:24)
[2023-03-24] MEDS ORDERED: KCL 20 MEQ TAB (K-DUR) PO SCH (06:00)
[2023-03-24] MEDS ORDERED: POTASSIUM CL 10MEQ/50ML IVPB 50 ML IV SCH (06:00)
[2023-03-24] MEDS ORDERED: MAGNESIUM 1 GM/100 ML IVPB 100 ML IV SCH (06:00)
[2023-03-24] MEDS: D5 1/2 NS 1000 ML IV SOLUTION 1,000 ML IV SCH ×2 (06:02→09:20)
--- NOTE | 2023-03-24 06:41 | Diagnostic Imaging Report ---
Indication: Weakness and leukocytosis Portable chest 12:58 AM Heart size and pulmonary vascularity are normal. Lungs are clear. There are no effusions or pneumothoraces. IMPRESSION: No acute abnormalities in the chest Dictated by: Dictated on workstation # [id number]
[2023-03-24] MEDS ORDERED: THIAMINE INJECTION 100 MG, FOLIC ACID INJECTION 1 MG, MAGNESIUM SULFATE 2 GM, VITAMIN M... IV SCH ×5 (09:00)
[2023-03-24] MEDS ORDERED: PANTOPRAZOLE 40 MG (PROTONIX) VIAL IV SCH (09:00)
[2023-03-24] MEDS ORDERED: lisINopril 40 MG (PRINIVIL) TABLET PO SCH (09:00)
[2023-03-24] MEDS ORDERED: inSUlin ASPART (NovoLOG) 1 UNIT/0.01 ML (CHARGE PER UNIT) SC NR (09:30)
[2023-03-24 10:13] LABS: CALCIUM 8.2 MG/DL (8.5-10.1); CREATININE SERUM 1.05 MG/DL (0.60-1.30); POTASSIUM 4.6 MMOL/L (3.6-5.0)
[2023-03-24 10:25] VITALS: BP 133/102
[2023-03-24] MEDS ORDERED: INSU100V16 SQ (10:27)
[2023-03-24] MEDS ORDERED: INSU100V6 SQ (10:27)
[2023-03-24] MEDS ORDERED: inSUlin ASPART (NovoLOG) 1 UNIT/0.01 ML (CHARGE PER UNIT) SC SCH (11:00)
--- NOTE | 2023-03-24 13:34 | Short Stay Summary-Hospitalist ---
[facility] 03/24/23 1334: History of Present Illness HPI/Chief Complaint This is a 48y M with PMH of DM, HTN and polysubstance abuse who presented to the ED 03/24 overnight with nausea and vomiting as well as feeling overall unwell. His last insulin dose was 3 days ago as he ran out. Uses IV meth and THC with last use a few days ago. Last saw PCP Dr. Jones 6 months ago. Labs were remarkable for glucose of 454, elevated anion gap of 17, beta-hydroxybutyrate of 0.95 at admission. CXR was without acute process.He was started on insulin drip and IVF. Has refused to give urine specimen. Today patient is very drowsy and falls asleep during my exam in the morning. This afternoon he is awake and wants to leave the hospital. Notes he is no longer vomiting and does not have any pain. Source: patient Exam Limitations: no limitations Date Seen 03/24/23 Time Seen by a Provider: 08:30 Attending Physician No,Local Physician PCP Admitting Physician: Lillie Kang DO Attending Physician: Tala Dale MD Referring Physician Date of Admission March 24, 2023 at 01:39 Home Medications & Allergies Home Medications Reviewed patient Home Medication Reconciliation performed by pharmacy medication reconciliations warehouse technician and/or nursing. Patients Allergies have been reviewed. Allergies Allergies Coded Allergies No Known Drug Allergies (Unverified06/08/09) Past Medical/Social/Family Hx Patient Social History Tobacco Use?: Yes Tobacco type used: Cigarettes Smoking Status: Current Everyday Smoker Smokeless Tobacco Frequency: Never a User Use of E-Cig and/or Vaping dev: No Substance use?: Yes Substance type: Methamphetamine, Nicotine, Marijuana Substance frequency: Daily Alcohol Use?: Yes Alcohol type: Hard Liquor Alcohol Frequency: Daily No alcohol x 2 weeks per patient. Pt stated abuse/neglect: No Immunizations Up To Date Influenza Vaccine Up-to-Date: No; Not Current Tetanus Booster (TDap): Unknown Hepatitis A: No Hepatitis B: No TB Skin Test: None Current Status Advance Directives: No Communicates: Verbally Primary Language: Libyan Preferred Spoken Language: Libyan Is interpretation needed?: No Past Medical History DM, HLD, HTN, COPD, GERD Family Medical History Family Hx: SOCIAL HISTORY: -SMOKES AT LEAST 1 PPD--UP TO 3 PPD -ETOH--ABUSE/DAILY USE -DRUGS--+ IV METH AND COCAINE USE, THC USE Review of Systems Constitutional: No dizziness, No fever EENTM: No blurred vision, No double vision Respiratory: No short of breath Cardiovascular: No chest pain Gastrointestinal: No nausea, No vomiting All Other Systems Reviewed Negative Unless Noted: Yes (Negative excepted noted.) Physical Exam Physical Exam Vital Signs Vital Signs - First Documented 03/23/23 23:55 Temp 35.5 Pulse 113 Resp 18 B/P (MAP) 153/105 (121) Pulse Ox 96 O2 Delivery Room Air Capillary Refill : Less Than 3 Seconds Height, Weight, BMI Height: 6'3.00" Weight: 210lbs. 4.0oz. 95.025929ct; 26.83 BMI Method:Stated General Appearance: No Apparent Distress, Thin HEENT: PERRL/EOMI, Other (poor dentition) Neck: Normal Inspection Respiratory: Lungs Clear, Normal Breath Sounds, No Accessory Muscle Use, No Respiratory Distress Cardiovascular: No Edema, No Murmur, Tachycardia Gastrointestinal: Non Tender, Soft Extremity: Normal Inspection, No Pedal Edema Neurologic/Psychiatric: Alert, Oriented x3, No Motor/Sensory Deficits Skin: Normal Color, Warm/Dry Results Results/Procedures Labs Laboratory Tests 03/24/23 00:00 03/24/23 02:27 03/24/23 02:33 03/24/23 04:05 03/24/23 09:52 Patient resulted labs reviewed. Short Stay Diagnosis Discharge Diagnosis-Short Stay Admission Diagnosis DKA Final Discharge Diagnosis DKA Conclusion Plan DKA Vomiting/Nausea-resolved Hx DM Transition from insulin drip to SC insulin, pt given Novolog and Levemir before leaving AMA Continue Novolog and Lantus, sent to pharmacy Polysubstance abuse Last used a few days ago Urine sample refused Patient left AMA TALA DALE MD 03/24/23 1625: History of Present Illness Time Seen by a Provider: 10:30 Past Medical/Social/Family Hx Family Medical History Family Hx: non-contributory Results Results/Procedures Imaging: Reviewed Imaging Report Short Stay Diagnosis Conclusion Plan Admitted with DKA. Started on DKA protocol with IV fluids and insulin. Acidosis resolved, blood sugar improved. Patient encouraged to continue in hospital medical treatment, chose to leave AMA. Given prescriptions for insulin. Diagnosis/Problems Diagnosis/Problems (1) T1DM (type 1 diabetes mellitus) Status: Acute Qualifiers: Qualified Codes: E10.10 - Type 1 diabetes mellitus with ketoacidosis without coma (2) HTN (hypertension) Status: Acute (3) ADRIANO (acute kidney injury) Status: Acute (4) Non-adherence to medical treatment Status: Acute (5) Polysubstance abuse Status: Acute Supervisory-Addendum Brief Verification & Attestation Participated in pt care: history, MDM, physical Personally performed: exam, history, MDM, supervision of care Care discussed with: Medical Student Procedures: n/a Results interpretation: Verified all documentation A medical student performed and documented this service in my presence. I reviewed and verified all information documented by the medical student and made modifications to such information, when appropriate. I personally performed the physical exam and medical decision making. KENDAL ARCINIEGA March 24, 2023 13:34 TALA DALE MD March 24, 2023 16:25
== END 2023-03-24 10:25 | disposition left against medical advice (07) | DRG 638 ==
LOC: EDUNIT# 23:49 → ER 23:51 → ICU 03-24 01:39
PROVIDERS: ADMIT Internal Medicine; ATTEND Internal Medicine
DX: E10.10 Type 1 diabetes mellitus with ketoacidosis without coma (principal); N17.9 Acute kidney failure, unspecified; F17.210 Nicotine dependence, cigarettes, uncomplicated; F19.10 Other psychoactive substance abuse, uncomplicated; F15.90 Other stimulant use, unspecified, uncomplicated; F12.90 Cannabis use, unspecified, uncomplicated; J44.9 Chronic obstructive pulmonary disease, unspecified; E78.00 Pure hypercholesterolemia, unspecified; I10 Essential (primary) hypertension; G89.29 Other chronic pain; M54.9 Dorsalgia, unspecified; M25.569 Pain in unspecified knee; Z79.4 Long term (current) use of insulin; F41.9 Anxiety disorder, unspecified; E86.0 Dehydration; I45.10 Unspecified right bundle-branch block; Z91.199 Patient's noncompliance with other medical treatment and regimen due to unspecified reason
CPT/HCPCS: 36415; 71045; 80048; 80053; 80320; 80329; 82010; 82150; 82805; 82947; 83036; 83605; 83690; 83735; 83874; 84100; 85007; 85025; 85027; 85610; 85652; 85730; 86141; 87081; 87389; 93005; 93041